=== PATIENT | female | born 1990 | race Caucasian/White ===

== ENCOUNTER 2016-12-27 15:53 | Emergency (ER) | payer OTHER ==
[2016-12-27 16:00] VITALS: TEMP 98.5
--- NOTE | 2016-12-27 16:44 | ED ---
Anxiety HPI - General Chief Complaint: Anxiety Stated Complaint: Anxiety Time Seen by Provider: 12/27/16 16:18 Source: patient, RN notes reviewed Mode of arrival: ambulatory - History of Present Illness Initial Comments: 26-year-old female presents emergency department with a chief complaint of panic attack. Patient states that she is about to be evicted from her apartment today she just started to break down. Patient states that she just overwhelmed by anxiety. Patient states that she felt like she can get good deep breaths. Patient states she started to cry. Patient states she was concerned so she thought that she should be evaluated. Patient states now this time she is feeling better. She states after she cried she is feeling much better and would like to go home.Patient denies any recent fever, chills, shortness of breath, chest pain, back pain, abdominal pain, nausea vomiting, numbness or tingling, dysuria or hematuria, constipation or diarrhea, headaches or visual changes, or any other current symptoms. - Related Data Home Medications: Home Medications Medication Instructions Recorded Confirmed No Known Home Medications [No 12/27/16 12/27/16 Known Home Medications] Allergies/Adverse Reactions: Allergies Allergy/AdvReac Type Severity Reaction Status Date / Time No Known Allergies Allergy Verified 12/27/16 16:35 Review of Systems ROS Statement: Those systems with pertinent positive or pertinent negative responses have been documented in the HPI. ROS Other: All systems not noted in ROS Statement are negative. Past Medical History Past Medical History: No Reported History Additional Past Medical History / Comment(s): OB history: First was a for distress. This is her second and she has had care with me since 16 weeks. A+, abs neg, Rub Imm, RPR NR, Hep B neg, toxo neg. History of Any Multi-Drug Resistant Organisms: None Reported Past Surgical History: Section Past Anesthesia/Blood Transfusion Reactions: No Reported Reaction Past Psychological History: No Psychological Hx Reported Smoking Status: Current every day smoker Past Alcohol Use History: Daily Past Drug Use History: None Reported - Past Family History Mother Family Medical History: COPD Additional Family Medical History / Comment(s): General Exam Limitations: no limitations General appearance: alert, in no apparent distress Head exam: Present: atraumatic, normocephalic, normal inspection ENT exam: Present: normal exam, mucous membranes moist Neck exam: Present: normal inspection. Absent: tenderness, meningismus, lymphadenopathy Respiratory exam: Present: normal lung sounds bilaterally. Absent: respiratory distress, wheezes, rales, rhonchi, stridor Cardiovascular Exam: Present: regular rate, normal rhythm, normal heart sounds. Absent: systolic murmur, diastolic murmur, rubs, gallop, clicks Neurological exam: Present: alert, oriented X3 Psychiatric exam: Present: normal affect, normal mood Skin exam: Present: warm, dry, intact, normal color. Absent: rash Course Vital Signs 12/27/16 15:56 Temperature 98.5 F Pulse Rate 124 H Respiratory 20 Rate Blood Pressure 158/87 O2 Sat by Pulse 99 Oximetry Medical Decision Making - Medical Decision Making 26-year-old female presents with what appears to be a panic attack. This time symptoms have completely resolved and she is requesting discharge. At this time we did discuss follow-up and to give her a sheet for referrals for counselors. We did discuss return parameters all questions. Patient stated that she understood and she is planned. She will be discharged. Disposition Clinical Impression: Acute anxiety Disposition: HOME SELF-CARE Condition: Stable Instructions: Generalized Anxiety Disorder (ED) Additional Instructions: Please use medication as discussed. Please follow up with family doctor if symptoms have not improved over the next two days. Please return to the emergency room if your symptoms increase or worsen or for any other concerns. Referrals: Renata Johnson MD [STAFF PHYSICIAN] - 1-2 days Time of Disposition: 16:44
[2016-12-27 17:00] VITALS: BP 144/96; PULSE 85; RESP 16
== END 2016-12-27 17:00 | disposition home or self-care (01) ==
LOC: EC 15:53
DX: F41.9 Anxiety disorder, unspecified (principal); F17.200 Nicotine dependence, unspecified, uncomplicated
CPT/HCPCS: 99283

== ENCOUNTER 2018-12-26 16:09 | Emergency (ER) | payer OTHER ==
[2018-12-26 17:32] VITALS: BP 124/88; PULSE 79; RESP 18; TEMP 98.5
--- NOTE | 2018-12-26 18:29 | ED ---
ENT HPI - General Chief complaint: ENT Stated complaint: Ear pain Time Seen by Provider: 12/26/18 17:52 Source: patient Mode of arrival: ambulatory Limitations: no limitations - History of Present Illness Initial comments: Patient is a 28-year-old female presents emergency Department with bilateral otalgia. Patient reports approximately 2 weeks ago she had an upper respiratory infection accompanied with a sinus infection which has since resolved but the bilateral ear discomfort still present. Patient reports the pain is minimal but she does have decreased hearing bilaterally. Patient denies taking medications to alleviate the symptoms. Patient does report bilateral ear effusion of yellow fluid. Patient denies bilateral auricular pain or erythema. Patient denies fever, nausea, vomiting. Patient denies rhinorrhea, sore throat or cough. Patient does report a history of seasonal ALLERGIES which she does not take anything to alleviate them. - Related Data Previous Rx's Medication Instructions Recorded Amoxicillin 500 mg PO Q8H #30 capsule 12/26/18 Allergies Allergy/AdvReac Type Severity Reaction Status Date / Time No Known Allergies Allergy Verified 12/26/18 17:32 Review of Systems ROS Statement: Those systems with pertinent positive or pertinent negative responses have been documented in the HPI. ROS Other: All systems not noted in ROS Statement are negative. Past Medical History Past Medical History: No Reported History Additional Past Medical History / Comment(s): OB history: First was a for distress. This is her second and she has had care with me since 16 weeks. A+, abs neg, Rub Imm, RPR NR, Hep B neg, toxo neg. History of Any Multi-Drug Resistant Organisms: None Reported Past Surgical History: Section Past Anesthesia/Blood Transfusion Reactions: No Reported Reaction Past Psychological History: No Psychological Hx Reported Smoking Status: Current every day smoker Past Alcohol Use History: Occasional Past Drug Use History: None Reported - Past Family History Mother Family Medical History: COPD Additional Family Medical History / Comment(s): General Exam Limitations: no limitations General appearance: alert, in no apparent distress Head exam: Present: atraumatic, normocephalic, normal inspection Eye exam: Present: normal appearance, PERRL, EOMI Pupils: Present: normal accommodation ENT exam: Present: normal exam, normal oropharynx, mucous membranes moist, normal external ear exam, other (Mild cerumen impaction bilaterally.). Absent: TM's normal bilaterally (Bilateral bulging tympanic membranes. Erythematous right tympanic membrane.) Neck exam: Present: normal inspection, full ROM. Absent: tenderness, lymphadenopathy Respiratory exam: Present: normal lung sounds bilaterally Cardiovascular Exam: Present: regular rate, normal rhythm, normal heart sounds Extremities exam: Present: normal inspection, full ROM Back exam: Present: normal inspection, full ROM Neurological exam: Present: alert, oriented X3 Psychiatric exam: Present: normal affect, normal mood Skin exam: Present: warm, intact, normal color Course Vital Signs 12/26/18 17:30 Temperature 98.5 F Pulse Rate 79 Respiratory 18 Rate Blood Pressure 124/88 O2 Sat by Pulse 99 Oximetry Medical Decision Making - Medical Decision Making Patient is a 28-year-old who presents emergency Department with bilateral otalgia. Based on history and physical examination a suspect the patient to be having a right-sided ear infection. Concurrently a suspect the patient to have decreased hearing due to seasonal ALLERGIES. Patient will be placed on 10 the course of amoxicillin. Patient will also be placed on Zyrtec. Patient advised to follow up with ENT. Patient advised to return to emergency department if symptoms worsen. Case discussed with physician. Disposition Clinical Impression: Ear discomfort Disposition: HOME SELF-CARE Condition: Stable Instructions (If sedation given, give patient instructions): Earache (ED) Additional Instructions: Please take prescribed medication as directed. Please follow up with primary care. Please return to emergency department if symptoms worsen. Please obtain Zyrtec [id number]. Prescriptions: Amoxicillin 500 mg PO Q8H #30 capsule Is patient prescribed a controlled substance at d/c from ED?: No Referrals: None,Stated [Primary Care Provider] - 1-2 days Time of Disposition: 18:29
== END 2018-12-26 18:36 | disposition home or self-care (01) ==
LOC: EC 16:09
DX: H92.03 Otalgia, bilateral (principal); F17.200 Nicotine dependence, unspecified, uncomplicated
CPT/HCPCS: 99282

== ENCOUNTER 2020-03-14 06:21 | Inpatient (IN) | payer OTHER ==
[2020-03-14] MEDS ORDERED: CITRIC ACID-SODIUM CITRATE 15 ML CUP PO ONE (06:40)
[2020-03-14 07:01] LABS: Basophils % (A) 0 %; Eosinophils # (A) 0.2 k/uL (0-0.7); Eosinophils % (A) 2 %; HGB 12.7 gm/dL (11.4-16.0); Lymphocytes # (A) 2.4 k/uL (1.0-4.8); Lymphocytes % (A) 18 %; MCH 28.1 pg (25.0-35.0); MCHC 33.4 g/dL (31.0-37.0); MCV 84.1 fL (80.0-100.0); Monocytes # (A) 0.8 k/uL (0-1.0); Monocytes % (A) 6 %; Neutrophils # (A) 9.5 k/uL (1.3-7.7); Neutrophils % (A) 72 %; Platelet Count 286 k/uL (150-450); RBC 4.52 m/uL (3.80-5.40); RDW 13.4 % (11.5-15.5); WBC 13.1 k/uL (3.8-10.6)
[2020-03-14] MEDS: LACTATED RINGERS 1,000 ML IV SCH ×4 (07:02→22:00)
[2020-03-14] MEDS ORDERED: MORPHINE SULFATE (PF) 0.3 MG/0.3 ML SYR ONE (07:58)
[2020-03-14] MEDS ORDERED: OXYTOCIN 10 UNIT/ML 1 ML VIAL ONE (07:58)
[2020-03-14] MEDS ORDERED: ePHEDrine SULFATE/0.9% NACL/PF 50 MG/5 ML SYRINGE IV ONE (07:58)
[2020-03-14] MEDS ORDERED: ONDANSETRON 4 MG/2 ML VIAL ONE (07:58)
[2020-03-14] MEDS ORDERED: KETOROLAC 15 MG/ML 1 ML VIAL ONE (07:58)
[2020-03-14] MEDS ORDERED: NALBUPHINE 10 MG/ML (1 ML AMP) ONE (07:58)
[2020-03-14] MEDS ORDERED: KETOROLAC 15 MG/ML 1 ML VIAL IVP PRN (08:34)
[2020-03-14] MEDS ORDERED: MEASLES-MUMPS-RUBELLA VACC/PF 12,500 UNIT/0.5 ML VIAL SQ ONE (08:34)
[2020-03-14] MEDS ORDERED: ONDANSETRON 4 MG/2 ML VIAL IVP PRN ×2 (08:34→09:02)
[2020-03-14] MEDS ORDERED: HYDROcodone/APAP 7.5-325MG 1 EACH TAB PO PRN (08:34)
[2020-03-14] MEDS ORDERED: diphenhydrAMINE 50 MG/ML 1 ML VIAL IVP PRN ×2 (08:34)
[2020-03-14] MEDS ORDERED: diphenhydrAMINE 25 MG CAP PO PRN (08:34)
[2020-03-14] MEDS ORDERED: NALOXONE 0.4 MG/ML 1 ML VIAL IV PRN ×2 (08:34→09:02)
[2020-03-14] MEDS ORDERED: ZOLPIDEM 5 MG TAB PO PRN (08:34)
[2020-03-14] MEDS ORDERED: METOCLOPRAMIDE 5 MG/ML 2 ML VIAL IVP PRN (08:34)
[2020-03-14] MEDS ORDERED: diphenhydrAMINE 50 MG CAP PO PRN (08:34)
[2020-03-14] MEDS ORDERED: ACETAMINOPHEN TAB 325 MG TAB PO PRN (08:34)
--- NOTE | 2020-03-14 08:38 | P.OP ---
Date of Procedure: 03/14/20 Preoperative Diagnosis: Intrauterine Brixey term: Prior sections Postoperative Diagnosis: Same Procedure(s) Performed: Repeat low transverse section Anesthesia: spinal Surgeon: Anjel Mejia Ip Architect #1: Carroll Abraham Estimated Blood Loss (ml): 300 IV fluids (ml): 1,000 Urine output (ml): 300 Pathology: none sent Condition: stable Disposition: floor Operative Findings: Viable female who cord 1 easily reduced Description of Procedure: Patient was taken to the operating suite where a drip spinal anesthetic was found be adequate. She was prepped and draped in the normal sterile fashion and placed in the dorsal supine position with leftward tilt. Initially a Pfannenstiel skin incision was made and this incision was then carried through to underlying layer of the fascia with the second knife. Fascia was then nicked in the midline and this opening was extended laterally with Louis scissors. Superior and inferior aspect of this incision were then grasped tented up and bluntly and sharply dissected off the rectus muscles. Rectus muscles were then divided the midline and blunt dissection through the peritoneum was done. This opening was then extended superiorly and inferiorly with good visualization of both bowel bladder. Bladder blade was then placed and the bladder flap identified. It was entered with Metzenbaum scissors and carried across face uterus and then bluntly dissected out of the operative field. Knife was then used to incise uterus and this opening was then extended bluntly following full opening with hemostat. Once this is completed head was atraumatically delivered from left occiput transverse position nuchal cord 1 was noted and easily reduced. Anterior posterior shoulders were then delivered followed by the hollie hunter the baby. Umbilical cord was then clamped cut usual fashion an nursery personnel was present to assume care. Placenta was then delivered intact and Pitocin was added to the IV. Uterus was then exteriorized cleared of clots and debris and closed in 2 layers with 0 Vicryl suture. Once full closure was done and hemostasis was obtained blood and debris was suctioned the posterior cul-de-sac and uterus was reinserted into the abdomen. Peritoneal layer was then closed with 0 Vicryl suture. Fascial layers close with 0 Vicryl suture. One layer of 3-0 Vicryl was placed in deep subcuticular tissues to reapproximate skin and close the space. Skin was then closed with 4-0 Vicryl subcuticular. Sponge, lap, needle counts were all correct 2. Patient was then taken to the recovery room in stable and satisfactory condition.
[2020-03-14] MEDS ORDERED: HYDROmorphone 0.5 MG/0.5 ML SYRINGE IVP PRN (09:02)
--- NOTE | 2020-03-14 12:54 | P.HPOB ---
History of Present Illness H&P Date: 03/14/20 Chief Complaint: Intrauterine term: Prior sections Phyllis is a 29-year-old at 39 weeks gestation arise for repeat section. Risks course has been, K by late care and I only began seeing her at 33 weeks during the course of my visit as she does not have any problems issues or complaints. She is scheduled for repeat section today. Risks/benefits/alternatives reviewed with patient in detail and all questions were answered for her prior to proceeding to the operative room. Category 1 tracings noted prior to proceeding to the operative. Past Medical History Past Medical History: No Reported History Additional Past Medical History / Comment(s): OB history: First was a for distress. This is her second and she has had care with me since 16 weeks. A+, abs neg, Rub Imm, RPR NR, Hep B neg, toxo neg. History of Any Multi-Drug Resistant Organisms: None Reported Past Surgical History: Section Past Anesthesia/Blood Transfusion Reactions: No Reported Reaction Past Psychological History: No Psychological Hx Reported Smoking Status: Current every day smoker Past Alcohol Use History: Occasional Past Drug Use History: None Reported - Past Family History Mother Family Medical History: COPD Additional Family Medical History / Comment(s): Medications and Allergies Home Medications Medication Instructions Recorded Confirmed Type No Known Home Medications 03/14/20 03/14/20 History Allergies Allergy/AdvReac Type Severity Reaction Status Date / Time No Known Allergies Allergy Verified 12/26/18 17:32 Exam Osteopathic Statement: *. No significant issues noted on an osteopathic structural exam other than those noted in the History and Physical/Consult. Vital Signs Temp Pulse Resp BP Pulse Ox 03/14/20 10:41 81 16 111/65 98 03/14/20 10:11 80 16 116/68 97 03/14/20 10:02 16 98 03/14/20 09:41 86 16 111/83 98 03/14/20 09:26 80 16 107/64 100 03/14/20 09:11 90 16 160/63 100 03/14/20 09:02 16 100 03/14/20 08:56 83 16 117/58 100 03/14/20 08:41 96.8 F L 89 16 132/60 03/14/20 06:42 97.0 F L 102 H 18 115/80 96 Intake and Output 03/13/20 03/14/20 03/14/20 22:59 06:59 14:59 Intake Total 100 Output Total 587 Balance -487 Intake: Oral 100 Output: Estimated Blood Loss 587 Other: Voiding Method Indwelling Catheter Weight 84.368 kg - OBG Physical Exam Breast: both: normal (no masses) Abdomen: bowel sounds normal, no diffuse tenderness, no bruit present, no guarding noted, no hepatomegaly, no splenomegaly, no mass Vulva: both: normal Vagina: normal moisture, no discharge Cervix: no lesion, no discharge Uterus: normal size, normal contour Adnexa: both: normal Anus/Rectum: normal perianal skin, no rectal mass, no hemorrhoids, heme negative Results Result Diagrams: 03/14/20 06:40 Abnormal Lab Results - Last 24 Hours (Table) 03/14/20 Range/Units 06:40 WBC 13.1 H (3.8-10.6) k/uL Neutrophils # 9.5 H (1.3-7.7) k/uL
[2020-03-14] MEDS: SENNOSIDES-DOCUSATE SODIUM 1 EACH TAB PO SCH (20:33)
[2020-03-15] MEDS: LACTATED RINGERS 1,000 ML IV SCH ×3 (00:43→09:11)
--- NOTE | 2020-03-15 07:18 | P.PN ---
Progress Note - Text Progress Note Date: 03/15/20 Patient seen and examined POD # 1 s/p . Patient received spinal anesthesia with duramorph for post operative pain management. Patient with acceptable pain this morning. Patient able to ambulate and use the restroom without difficulty. Patient denies headache, fever, chills, chest pain, itching, dizziness, SOB, parathesias. Spinal site clean and without erythema. All questions answered.
[2020-03-15 07:24] LABS: Basophils # (A) 0.1 k/uL (0-0.2); Basophils % (A) 1 %; Eosinophils # (A) 0.2 k/uL (0-0.7); Eosinophils % (A) 1 %; HCT 33.4 % (34.0-46.0); HGB 11.3 gm/dL (11.4-16.0); Lymphocytes # (A) 1.5 k/uL (1.0-4.8); Lymphocytes % (A) 14 %; MCH 28.1 pg (25.0-35.0); MCHC 33.9 g/dL (31.0-37.0); Mean Platelet Volume 7.6; Monocytes % (A) 9 %; Neutrophils # (A) 8.5 k/uL (1.3-7.7); Neutrophils % (A) 75 %; Platelet Count 250 k/uL (150-450); RBC 4.03 m/uL (3.80-5.40); RDW 13.2 % (11.5-15.5); WBC 11.4 k/uL (3.8-10.6)
--- NOTE | 2020-03-15 08:28 | P.PNOBGPC ---
Subjective - Subjective Principal diagnosis: Postop day 1 Interval history: Phyllis is doing very well postop day 1. She is involuting, voiding and she is tolerating her diet. She voices no complaints and her vital signs are stable and afebrile. Heart regular, lungs clear, extremities without pain. Abdomen soft incisions clean dry and intact. Assessment post op day 1. Plan continue current care Patient reports: Reports appetite normal, Reports voiding normally, Reports pain well controlled, Reports ambulating normally : doing well Objective - Vital Signs Latest vital signs: Vital Signs Temp Pulse Resp BP Pulse Ox 03/15/20 03:58 98.3 F 71 16 121/82 98 03/15/20 00:00 98.1 F 74 16 127/83 98 03/14/20 20:00 97.9 F 83 16 115/81 95 03/14/20 18:00 16 99 03/14/20 16:00 97.7 F 73 16 110/72 03/14/20 14:02 98 03/14/20 14:00 16 98 03/14/20 12:02 98 03/14/20 12:00 98.6 F 92 18 107/67 97 03/14/20 10:41 81 16 111/65 98 03/14/20 10:11 80 16 116/68 97 03/14/20 10:02 16 98 03/14/20 09:41 86 16 111/83 98 03/14/20 09:26 80 16 107/64 100 03/14/20 09:11 90 16 160/63 100 03/14/20 09:02 16 100 03/14/20 08:56 83 16 117/58 100 03/14/20 08:41 96.8 F L 89 16 132/60 Intake and Output 03/14/20 03/15/20 03/15/20 22:59 06:59 14:59 Output Total 3400 1000 Balance -3400 -1000 Output: Urine 3400 1000 Uretheral (Lozano) 2500 Other: Voiding Method Indwelling Catheter # Voids 2 1 - Labs Labs: Abnormal Lab Results - Last 24 Hours (Table) 03/15/20 Range/Units 07:06 WBC 11.4 H (3.8-10.6) k/uL Hgb 11.3 L (11.4-16.0) gm/dL Hct 33.4 L (34.0-46.0) % Neutrophils # 8.5 H (1.3-7.7) k/uL
[2020-03-15] MEDS: SENNOSIDES-DOCUSATE SODIUM 1 EACH TAB PO SCH ×2 (08:52→20:02)
[2020-03-15] MEDS: IBUPROFEN 600 MG TAB PO PRN ×2 (13:38→20:01)
--- NOTE | 2020-03-16 07:27 | P.DS ---
Providers Date of admission: 03/14/20 06:21 Expected date of discharge: 03/16/20 Attending physician: Anjel Mejia Primary care physician: Stated None Hospital Course: Phyllis is doing very well postop day 2. She is ambulating, voiding and tolerating her diet. She voices no complaint. Vital signs are stable and afebrile. Heart regular, lungs clear, extremities without pain. Abdomen is soft uterus is firm and her incision is otherwise clean dry and intact. Prescriptions for [place] and Motrin are provided and discharge instructions were thoroughly reviewed and all questions are answered for her and she is stable for discharge this time. Assessment postop day 2. Plan discharged home follow up with me in 1 week Patient Condition at Discharge: Good Plan - Discharge Summary New Discharge Prescriptions: New Ibuprofen [Motrin] 600 mg PO Q6HR PRN #30 tab PRN Reason: Pain HYDROcodone/APAP 5-325MG [[place] 5-325] 1 tab PO Q4HR PRN #30 tab PRN Reason: Pain Discharge Medication List HYDROcodone/APAP 5-325MG [[place] 5-325] 1 tab PO Q4HR PRN #30 tab 03/16/20 [Rx] Ibuprofen [Motrin] 600 mg PO Q6HR PRN #30 tab 03/16/20 [Rx] Follow up Appointment(s)/Referral(s): Anjel Mejia DO [Doctor of Osteopathic Medicine] - 1 Week Activity/Diet/Wound Care/Special Instructions: No heavy lifting, limit stairs and driving, and pelvic rest. If any high temperatures, heavy bleeding, or severe pain call my office
[2020-03-16] MEDS: IBUPROFEN 600 MG TAB PO PRN (08:57)
[2020-03-16] MEDS: SENNOSIDES-DOCUSATE SODIUM 1 EACH TAB PO SCH (08:58)
[2020-03-16 09:11] VITALS: BP 110/71; PULSE 75; RESP 16; TEMP 98.1
== END 2020-03-16 11:00 | disposition home or self-care (01) | DRG 788 ==
LOC: 4FBP 06:21
PROVIDERS: ADMIT Obstetrics & Gynecology; ATTEND Obstetrics & Gynecology
PROC: 10D00Z1 Extraction of Products of Conception, Low, Open Approach (ICD-10-PCS; principal; 2020-03-14 08:00)
DX: O34.211 Maternal care for low transverse scar from previous cesarean delivery (principal); O99.334 Smoking (tobacco) complicating childbirth; F17.200 Nicotine dependence, unspecified, uncomplicated; O69.81X0 Labor and delivery complicated by cord around neck, without compression, not applicable or unspecified; Z37.0 Single live birth; Z3A.39 39 weeks gestation of pregnancy; Z82.5 Family history of asthma and other chronic lower respiratory diseases
CPT/HCPCS: 85025; 86850; 86900; 86901

== ENCOUNTER 2021-03-23 18:30 | Emergency (ER) | payer OTHER ==
[2021-03-23 18:48] VITALS: BP 126/82; PULSE 90; RESP 20; TEMP 98.1
--- NOTE | 2021-03-23 19:57 | ED ---
Recheck HPI - General Chief Complaint: Recheck/Abnormal Lab/Rx Stated Complaint: Sneezing Time Seen by Provider: 03/23/21 19:37 Source: patient Mode of arrival: ambulatory Limitations: no limitations - History of Present Illness Initial Comments: 30-year-old female presents to emergency Department with chief complaint of sneezing and Covid testing. Patient reported symptoms begin to occur since yesterday and states that her family forced her to come to emergency department for for evaluation. Patient is requesting Queenie testing. Patient has any chest pain shortness of breath fevers chills nausea vomiting diarrhea. She is not a smoker. - Related Data Previous Rx's Medication Instructions Recorded HYDROcodone/APAP 5-325MG [[place] 1 tab PO Q4HR PRN #30 tab 03/16/20 5-325] Ibuprofen [Motrin] 600 mg PO Q6HR PRN #30 tab 03/16/20 Allergies Allergy/AdvReac Type Severity Reaction Status Date / Time No Known Allergies Allergy Verified 03/23/21 18:48 Review of Systems ROS Statement: Those systems with pertinent positive or pertinent negative responses have been documented in the HPI. ROS Other: All systems not noted in ROS Statement are negative. Past Medical History Past Medical History: No Reported History Additional Past Medical History / Comment(s): OB history: First was a for distress. This is her second and she has had care with co since 16 weeks. A+, abs neg, Rub Imm, RPR NR, Hep B neg, toxo neg. History of Any Multi-Drug Resistant Organisms: None Reported Past Surgical History: Section Past Anesthesia/Blood Transfusion Reactions: No Reported Reaction Past Psychological History: Anxiety Smoking Status: Current every day smoker Past Alcohol Use History: Occasional Past Drug Use History: None Reported - Past Family History Mother Family Medical History: COPD Additional Family Medical History / Comment(s): General Exam Limitations: no limitations General appearance: alert, in no apparent distress Head exam: Present: atraumatic, normocephalic, normal inspection Eye exam: Present: normal appearance Pupils: Present: normal accommodation ENT exam: Present: normal exam, normal oropharynx, mucous membranes moist Neck exam: Present: normal inspection, full ROM. Absent: tenderness, lymphadenopathy Respiratory exam: Present: normal lung sounds bilaterally. Absent: respiratory distress Cardiovascular Exam: Present: regular rate, normal rhythm, normal heart sounds. Absent: systolic murmur Extremities exam: Present: normal inspection, full ROM, normal capillary refill. Absent: tenderness, pedal edema Back exam: Present: normal inspection, full ROM. Absent: tenderness Neurological exam: Present: alert, oriented X3 Psychiatric exam: Present: normal affect, normal mood Skin exam: Present: warm, dry, intact, normal color Course Vital Signs 03/23/21 18:46 Temperature 98.1 F Pulse Rate 90 Respiratory 20 Rate Blood Pressure 126/82 O2 Sat by Pulse 99 Oximetry Medical Decision Making - Medical Decision Making 30-year-old female presents to emergency department with a chief complaint of sneezing and covid-19act testing. On physical examination, patient does not appear to be in respiratory distress. Vital signs are within normal limits. She is negative for Covid. Return parameters were discussed patient is an ascending agreeable. Case discussed with physician. - Lab Data Lab Results 03/23/21 Range/Units 18:49 Coronavirus (PCR) Not Detected (Not Detectd) Disposition Clinical Impression: Lab test negative for COVID-19 virus Disposition: HOME SELF-CARE Condition: Stable Instructions (If sedation given, give patient instructions): Coronavirus Disease 2019 (COVID-19) Additional Instructions: Please return to the Emergency Department if symptoms worsen or any other concerns. Is patient prescribed a controlled substance at d/c from ED?: No Referrals: None,Stated [Primary Care Provider] - 1-2 days Time of Disposition: 19:57
== END 2021-03-23 20:05 | disposition home or self-care (01) ==
LOC: EC 18:30
DX: R06.7 Sneezing (principal); F17.200 Nicotine dependence, unspecified, uncomplicated; Z20.822 Contact with and (suspected) exposure to COVID-19
CPT/HCPCS: 87635; 99283

== ENCOUNTER 2021-08-09 16:11 | Emergency (ER) | payer OTHER ==
[2021-08-09 17:13] VITALS: BP 130/80; PULSE 89; RESP 16; TEMP 98.7
[2021-08-09] MEDS ORDERED: IBUPROFEN 600 MG TAB PO STA (18:55)
[2021-08-09] MEDS ORDERED: LIDOCAINE 1% INJ 10MG/ML (20 ML MDV) SQ ONE (18:55)
--- NOTE | 2021-08-09 20:02 | ED ---
General Adult HPI - General Chief complaint: Skin/Abscess/Foreign Body Stated complaint: sore on L leg Time Seen by Provider: 08/09/21 18:40 Source: patient, RN notes reviewed Mode of arrival: ambulatory Limitations: no limitations - History of Present Illness Initial comments: 31-year-old female presents to the emergency department for evaluation of re dness and pain to the anterior aspect of the left lower extremity. Patient states she had what appeared to be a pimple-like sore on her lower leg, onset 2 days ago. States she has had no drainage from the wound since attempting to "pop it" yesterday. Now has surrounding redness and discomfort. Patient complains of pain. Denies fever, chills, headache, shortness of breath, nausea, or pain with ambulation. - Related Data Previous Rx's Medication Instructions Recorded Cephalexin [Keflex] 500 mg PO Q8HR 7 Days #21 cap 08/09/21 Allergies Allergy/AdvReac Type Severity Reaction Status Date / Time No Known Allergies Allergy Verified 08/09/21 19:30 Review of Systems ROS Statement: Those systems with pertinent positive or pertinent negative responses have been documented in the HPI. ROS Other: All systems not noted in ROS Statement are negative. Past Medical History Past Medical History: No Reported History Additional Past Medical History / Comment(s): OB history: First was a for distress. This is her second and she has had care with me since 16 weeks. A+, abs neg, Rub Imm, RPR NR, Hep B neg, toxo neg. History of Any Multi-Drug Resistant Organisms: None Reported Past Surgical History: Section Past Anesthesia/Blood Transfusion Reactions: No Reported Reaction Past Psychological History: Anxiety Smoking Status: Current every day smoker Past Alcohol Use History: Occasional Past Drug Use History: None Reported - Past Family History Mother Family Medical History: COPD Additional Family Medical History / Comment(s): General Exam Limitations: no limitations (Vital well-nourished female in no acute distress. Initial temperature 98.7, pulse 89, respirations 16, blood pressure 130/80, pulse ox 98% on room air.) General appearance: alert, in no apparent distress Respiratory exam: Present: normal lung sounds bilaterally. Absent: respiratory distress, wheezes, rales, rhonchi, stridor Cardiovascular Exam: Present: regular rate, normal rhythm, normal heart sounds. Absent: systolic murmur, diastolic murmur, rubs, gallop, clicks Right Lower Leg exam: Present: normal inspection, full ROM. Absent: tenderness, swelling, erythema, Homans' sign Neurovascular tendon exam: Present: no vascular compromise Left Knee exam: Present: normal inspection, full ROM. Absent: tenderness, swelling Lower Leg exam: Present: full ROM, tenderness (Tenderness upon palpation of the indurated area on the anterior aspect of the left lower leg; abscess is approximately 1 cm x 2 cm with a pinpoint scab in the center. No fluctuant area.), erythema (Erythematous tissue surrounding indurated area; no drainage ). Absent: swelling Ankle exam: Present: normal inspection, full ROM. Absent: tenderness Neurovascular tendon exam: Present: no vascular compromise. Absent: pulse deficit, abnormal cap refill, motor deficit, sensory deficit Neurological exam: Present: alert, oriented X3, CN II-XII intact Psychiatric exam: Present: normal affect, normal mood Course Vital Signs 08/09/21 17:10 Temperature 98.7 F Pulse Rate 89 Respiratory 16 Rate Blood Pressure 130/80 O2 Sat by Pulse 98 Oximetry Medical Decision Making - Medical Decision Making 31-year-old female with no significant past medical history presents to the e mergency department for evaluation of abscess with surrounding erythema to the anterior aspect of the left lower extremity. Upon exam, patient is well- appearing and in no acute distress. She is afebrile and not tachycardic. Abscess is 1 cm x 2 cm with a pinpoint scab in the center; it is indurated with no area of fluctuance for incision and drainage. Surrounding the abscess is diffuse erythema approximately 5 cm x 8 cm; it is not not warm to touch. Patient does not have any lower extremity edema. No history of recent MRSA infection. Patient will be started on Keflex, instructed to apply warm compresses and keep the leg elevated. She was given Motrin for discomfort with improvement. Instructed to follow up with her PCP next week. Return parameters were discussed. Patient verbalizes understanding and agrees with this plan. This patient's care was discussed with my attending Dr. Turner. Disposition Clinical Impression: Cellulitis and abscess of left lower extremity Disposition: HOME SELF-CARE Condition: Stable Instructions (If sedation given, give patient instructions): Cellulitis (ED), Abscess (ED) Additional Instructions: Apply warm compresses to affected area 3-4 times daily. Keep area clean and dry. Alternate Tylenol and Motrin as needed for pain. Take antibiotic as directed. Elevate affected extremity. Follow-up with your PCP for a recheck next Friday. Return to the emergency department with any new, worsening, or concerning symptoms. Prescriptions: Cephalexin [Keflex] 500 mg PO Q8HR 7 Days #21 cap Is patient prescribed a controlled substance at d/c from ED?: No Referrals: None,Stated [Primary Care Provider] - 1-2 days Time of Disposition: 20:15
[2021-08-09] MEDS ORDERED: CEPHALEXIN 500 MG CAP PO STA (20:12)
== END 2021-08-09 20:30 | disposition home or self-care (01) ==
LOC: EC 16:11
DX: L03.116 Cellulitis of left lower limb (principal); L02.416 Cutaneous abscess of left lower limb; F41.9 Anxiety disorder, unspecified; F17.200 Nicotine dependence, unspecified, uncomplicated
CPT/HCPCS: 99283; J2001

== ENCOUNTER 2021-08-15 18:17 | Emergency (ER) | payer OTHER ==
[2021-08-15 18:34] VITALS: BP 117/77; PULSE 86; RESP 20; TEMP 97.7
--- NOTE | 2021-08-15 19:26 | ED ---
General Adult HPI - General Chief complaint: Extremity Problem,Nontraumatic Stated complaint: Rt Leg Infection Time Seen by Provider: 08/15/21 18:46 Source: patient Mode of arrival: ambulatory Limitations: no limitations - History of Present Illness Initial comments: Dictation was produced using [employer] dictation software. please excuse any grammatical, word or spelling errors. Chief Complaint: 31-year-old female presents to the emergency department for worsening leg infection symptoms. History of Present Illness: She 31-year-old female she was seen here in emergency department 6 days ago for infection to her fagan. She was put on Keflex sent home. She did know some pimple at that time tried to pop it with no expression of fluid or pus. Denies any constitutional symptoms. She was put on Keflex 3 times a day sent home. The last couple days her symptoms have been getting worse. States that the redness has been spreading. The ROS documented in this emergency department record has been reviewed and confirmed by me. Those systems with pertinent positive or negative responses have been documented in the HPI. All other systems are other negative and/or noncontributory. PHYSICAL EXAM: General Impression: Alert and oriented x3, not in acute distress HEENT: Normocephalic atraumatic, extra-ocular movements intact, pupils equal and reactive to light bilaterally, mucous membranes moist. Cardiovascular: Heart regular rate and rhythm Chest: Able to complete full sentences, no retractions, no tachypnea Musculoskeletal: Pulses present and equal in all extremities, no peripheral edema Motor: no focal deficits noted Neurological: CN II-XII grossly intact, no focal motor or sensory deficits noted Skin: There does appear to be some redness to the left anterior fagan. She has palpatory tenderness around that area without any worsening redness. Psych: Normal affect and mood ED course: 31 yo Female presents emergency department for worsening left lower extremity infection. She is on Keflex 3 times a day. Vital signs upon arrival are within acceptable limits. [id number] bedside ultrasound was used and sh owed small abscess measuring half by half centimeter. Area was anesthetized with lidocaine. Needle aspiration was performed removing approximately half a cc of purulent fluid. Patient tolerated procedure well. Survey of the rest of the leg showed localized cobblestoning consistent with cellulitis. Given the patient worsened with Keflex patient will be given Keflex and Bactrim. Advised follow-up with primary care doctor. - Related Data Home Medications Medication Instructions Recorded Confirmed Cephalexin [Keflex] 500 mg PO TID 08/15/21 08/15/21 Previous Rx's Medication Instructions Recorded Cephalexin [Keflex] 500 mg PO Q6HR 5 Days #20 cap 08/15/21 Sulfamethox-Tmp 800-160Mg [Bactrim 1 tab PO Q12HR 7 Days #14 tab 08/15/21 DS 800-160 mg] Allergies Allergy/AdvReac Type Severity Reaction Status Date / Time No Known Allergies Allergy Verified 08/15/21 19:17 Review of Systems ROS Statement: Those systems with pertinent positive or pertinent negative responses have been documented in the HPI. ROS Other: All systems not noted in ROS Statement are negative. Past Medical History Past Medical History: No Reported History Additional Past Medical History / Comment(s): OB history: First was a for distress. This is her second and she has had care with pr since 16 weeks. A+, abs neg, Rub Imm, RPR NR, Hep B neg, toxo neg. History of Any Multi-Drug Resistant Organisms: None Reported Past Surgical History: Section Past Anesthesia/Blood Transfusion Reactions: No Reported Reaction Past Psychological History: Anxiety Smoking Status: Former smoker Past Alcohol Use History: Occasional Past Drug Use History: None Reported - Past Family History Mother Family Medical History: COPD Additional Family Medical History / Comment(s): General Exam Limitations: no limitations Course Vital Signs 08/15/21 18:32 Temperature 97.7 F Pulse Rate 86 Respiratory 20 Rate Blood Pressure 117/77 O2 Sat by Pulse 98 Oximetry Disposition Clinical Impression: Abscess Disposition: HOME SELF-CARE Condition: Good Instructions (If sedation given, give patient instructions): Abscess Incision and Drainage (ED) Prescriptions: Sulfamethox-Tmp 800-160Mg [Bactrim DS 800-160 mg] 1 tab PO Q12HR 7 Days #14 tab Cephalexin [Keflex] 500 mg PO Q6HR 5 Days #20 cap Is patient prescribed a controlled substance at d/c from ED?: No Referrals: None,Stated [Primary Care Provider] - 1-2 days
== END 2021-08-15 19:44 | disposition home or self-care (01) ==
LOC: EC 18:17
DX: L02.416 Cutaneous abscess of left lower limb (principal); F41.9 Anxiety disorder, unspecified; Z87.891 Personal history of nicotine dependence
CPT/HCPCS: 10060; 99282

== ENCOUNTER 2022-06-20 10:16 | Emergency (ER) | payer OTHER ==
--- NOTE | 2022-06-20 10:55 | ED ---
URI HPI - General Chief Complaint: Upper Respiratory Infection Stated Complaint: URI Time Seen by Provider: 06/20/22 10:36 Source: patient, RN notes reviewed Mode of arrival: ambulatory Limitations: no limitations - History of Present Illness Initial Comments: This is a 32-year-old female who presents to emergency department for congestion, body aches, and a sore throat. Symptoms started 2 days ago. She denies any sick contacts. She has no significant coughing associated with this. Also denies any chest pain or difficulty breathing. Denies any fevers, chills, cough, dyspnea, chest pain, palpitations, abdominal pain, nausea, vomiting, diarrhea, or back pain. MD Complaint: sore throat, nasal congestion Onset/Timin -: days(s) Associated Symptoms: myalgias - Related Data Previous Rx's Medication Instructions Recorded Azithromycin [Zithromax] 250 mg PO DIRECTED 5 Days #6 tab 06/20/22 predniSONE 50 mg PO DAILY 5 Days #5 tablet 06/20/22 Allergies Allergy/AdvReac Type Severity Reaction Status Date / Time No Known Allergies Allergy Verified 06/20/22 11:26 Review of Systems ROS Statement: Those systems with pertinent positive or pertinent negative responses have been documented in the HPI. ROS Other: All systems not noted in ROS Statement are negative. Past Medical History Past Medical History: No Reported History Additional Past Medical History / Comment(s): OB history: First was a for distress. This is her second and she has had care with [facility] since 16 weeks. A+, abs neg, Rub Imm, RPR NR, Hep B neg, toxo neg. History of Any Multi-Drug Resistant Organisms: None Reported Past Surgical History: Section Past Anesthesia/Blood Transfusion Reactions: No Reported Reaction Past Psychological History: Anxiety Smoking Status: Former smoker Past Alcohol Use History: Occasional Past Drug Use History: None Reported - Past Family History Mother Family Medical History: COPD Additional Family Medical History / Comment(s): General Exam Limitations: no limitations General appearance: alert, in no apparent distress Head exam: Present: atraumatic, normocephalic, normal inspection ENT exam: Present: mucous membranes moist, TM's normal bilaterally, other (2+ t onsillar hypertrophy) Respiratory exam: Present: normal lung sounds bilaterally. Absent: respiratory distress, wheezes, rales, rhonchi, stridor Cardiovascular Exam: Present: regular rate, normal rhythm, normal heart sounds. Absent: systolic murmur, diastolic murmur, rubs, gallop, clicks Neurological exam: Present: alert, oriented X3, CN II-XII intact Psychiatric exam: Present: normal affect, normal mood Skin exam: Present: warm, dry, intact, normal color. Absent: rash Course Vital Signs 06/20/22 06/20/22 10:33 12:39 Temperature 99.0 F 98.3 F Pulse Rate 111 H 107 H Respiratory 22 18 Rate Blood Pressure 126/5 121/86 O2 Sat by Pulse 97 97 Oximetry Medical Decision Making - Medical Decision Making This is a 32-year-old female who presents to the emergency department for a sore throat and body aches. Patient was negative for influenza, Covid, and strep throat. Given that she has no significant coughing or difficulty breathing, a chest x-ray was not obtained. Based on her symptoms, this does not appear to have any current effect on the lungs or lower respiratory tract. Differential diagnoses include a viral pharyngitis, mononucleosis, GERD, and allergies. Based on the acute nature of her symptoms with associated body aches, will treat this as an active infection. We will treat her with a Z-Jluis and course of prednisone. These were both prescribed with dosing instructions reviewed. Advised that if this is a viral infection, the Z-Jluis won't adequately treat it, however it does also offer helpful anti-inflammatory properties. Advised drinking warm fluids as well to help with the sore throat and using [id number] anesthetics or lozenges as needed. Return precautions reviewed in depth, the patient is instructed to return to the emergency department with any new, worsening, or concerning symptoms. Patient verbalized understanding. This case was discussed in detail with the attending ED physician. Presentation, findings, and treatment plan discussed in detail as well. - Lab Data Lab Results 06/20/22 06/20/22 06/20/22 Range/Units 11:06 11:06 11:06 Coronavirus (PCR) Not Detected (Not Detectd) Influenza Type A RNA Not Detected (Not Detectd) Influenza Type B (PCR) Not Detected (Not Detectd) Group A Strep (PCR) NOT DETECTED (Not Detectd) Disposition Clinical Impression: Pharyngitis, Viral infection Disposition: HOME SELF-CARE Instructions (If sedation given, give patient instructions): Pharyngitis (ED), Upper Respiratory Infection (ED) Additional Instructions: Return to the emergency department with any new, worsening, or concerning symptoms. Take the prednisone daily for 5 days. Take the antibiotic as prescribed for 5 days. Drink warm fluids to help with the sore throat. Follow up with your primary care provider in 1-2 days. Prescriptions: predniSONE 50 mg PO DAILY 5 Days #5 tablet Azithromycin [Zithromax] 250 mg PO DIRECTED 5 Days #6 tab Is patient prescribed a controlled substance at d/c from ED?: No Referrals: None,Stated [Primary Care Provider] - 1-2 days
[2022-06-20 12:41] VITALS: BP 121/86; PULSE 107; RESP 18; TEMP 98.3
== END 2022-06-20 12:41 | disposition home or self-care (01) ==
LOC: EC 10:16
DX: J02.8 Acute pharyngitis due to other specified organisms (principal); F41.9 Anxiety disorder, unspecified; Z87.891 Personal history of nicotine dependence; Z20.822 Contact with and (suspected) exposure to COVID-19
CPT/HCPCS: 87502; 87635; 87651; 99283

== ENCOUNTER 2022-06-24 16:32 | Emergency (ER) | payer OTHER ==
[2022-06-24 17:26] VITALS: TEMP 97.8
--- NOTE | 2022-06-24 20:39 | XR ---
EXAMINATION TYPE: XR chest 2V DATE OF EXAM: 06/24/2022 8:27 PM COMPARISON: None TECHNIQUE: XR chest 2V Frontal and lateral views of the chest. CLINICAL INDICATION:Female, 32 years old with history of cough; FINDINGS: Lungs/Pleura: There is no evidence of pleural effusion, focal consolidation, or pneumothorax. Pulmonary vascularity: Unremarkable. Heart/mediastinum: Cardiomediastinal silhouette is unremarkable. Musculoskeletal: No acute osseous pathology. IMPRESSION: No acute cardiopulmonary disease/process.
--- NOTE | 2022-06-24 20:52 | ED ---
URI HPI - General Chief Complaint: Upper Respiratory Infection Stated Complaint: Lt ear problem Time Seen by Provider: 06/24/22 20:05 Source: patient Mode of arrival: ambulatory Limitations: no limitations - History of Present Illness Initial Comments: Patient is a 32-year-old female presenting with chief complaint of left ear pain. Patient was seen here on the and diagnosed with pharyngitis, she was given Z-Jluis. Patient finished her Z-Jluis, she is still complaining of congestion, cough, and states that today she is having trouble hearing out of the left ear. No chest pain or difficulty breathing. No abdominal pain, nausea, vomiting. No neck pain or stiffness. No headache, vision or hearing changes, numbness, tingling, weakness, dizziness. - Related Data Previous Rx's Medication Instructions Recorded Azithromycin [Zithromax] 250 mg PO DIRECTED 5 Days #6 tab 06/20/22 predniSONE 50 mg PO DAILY 5 Days #5 tablet 06/20/22 Amoxicillin 875 mg PO Q12HR 7 Days #14 tablet 06/24/22 Allergies Allergy/AdvReac Type Severity Reaction Status Date / Time No Known Allergies Allergy Verified 06/24/22 17:26 Review of Systems ROS Statement: Those systems with pertinent positive or pertinent negative responses have been documented in the HPI. ROS Other: All systems not noted in ROS Statement are negative. Past Medical History Past Medical History: No Reported History Additional Past Medical History / Comment(s): OB history: First was a for distress. This is her second and she has had care with [facility] since 16 weeks. A+, abs neg, Rub Imm, RPR NR, Hep B neg, toxo neg. History of Any Multi-Drug Resistant Organisms: None Reported Past Surgical History: Section Past Anesthesia/Blood Transfusion Reactions: No Reported Reaction Past Psychological History: Anxiety Smoking Status: Former smoker Past Alcohol Use History: Occasional Past Drug Use History: None Reported - Past Family History Mother Family Medical History: COPD Additional Family Medical History / Comment(s): General Exam Limitations: no limitations General appearance: alert, in no apparent distress Head exam: Present: atraumatic, normocephalic, normal inspection Eye exam: Present: normal appearance, PERRL, EOMI. Absent: scleral icterus, conjunctival injection, periorbital swelling Expanded TM/Canal exam: Erythema: Left TM Neck exam: Present: normal inspection, full ROM Respiratory exam: Present: normal lung sounds bilaterally. Absent: respiratory distress, wheezes, rales, rhonchi, stridor Cardiovascular Exam: Present: regular rate, normal rhythm, normal heart sounds. Absent: systolic murmur, diastolic murmur, rubs, gallop, clicks Neurological exam: Present: alert, oriented X3, CN II-XII intact Psychiatric exam: Present: normal affect, normal mood Skin exam: Present: warm, dry, intact, normal color. Absent: rash Course Vital Signs 06/24/22 06/24/22 06/24/22 17:23 20:20 21:15 Temperature 97.8 F 97.8 F Pulse Rate 100 72 Respiratory 18 20 16 Rate Blood Pressure 153/82 127/58 O2 Sat by Pulse 97 98 Oximetry Medical Decision Making - Medical Decision Making Patient is a 32-year-old female presenting with chief complaint of left ear discomfort and difficulty hearing. Also admits to cough and congestion. Patient was recently treated with Z-Jluis for pharyngitis. Differential includes otitis media, viral URI, tympanic membrane rupture, sinusitis. On physical examination left tympanic membrane is erythematous. Patient is negative for influenza, RSV, and Covid. Chest x-ray interpreted by myself shows no acute process, radiologist report is also reviewed. Patient is educated on these findings. Patient is diagnosed with otitis media and treated with amoxicillin. Discharged home with education on supportive treatment. Alternate Motrin and Tylenol as needed. Follow-up with PCP. Report back to ER with any new or worsening symptoms. Discussed return parameters and answered all questions. Patient conveyed verbal understanding and agreed to the plan. I discussed this case in detail with my attending Dr. Turner - Lab Data Lab Results 06/24/22 Range/Units 17:26 Influenza Type A (PCR) Not Detected (Not Detectd) Influenza Type B (PCR) Not Detected (Not Detectd) RSV (PCR) Not Detected (Not Detectd) SARS-CoV-2 (PCR) Not Detected (Not Detectd) Disposition Clinical Impression: Otitis media Disposition: HOME SELF-CARE Condition: Good Instructions (If sedation given, give patient instructions): Ear Infection (ED), Upper Respiratory Infection (ED) Additional Instructions: Follow-up with PCP. Report back to ER with any new or worsening symptoms. Take medication as prescribed. Prescriptions: Amoxicillin 875 mg PO Q12HR 7 Days #14 tablet Is patient prescribed a controlled substance at d/c from ED?: No Referrals: None,Stated [Primary Care Provider] - 1-2 days Time of Disposition: 20:52
[2022-06-24 21:15] VITALS: BP 127/58; PULSE 72; RESP 16
== END 2022-06-24 21:15 | disposition home or self-care (01) ==
LOC: EC 16:32
DX: H66.92 Otitis media, unspecified, left ear (principal); F41.9 Anxiety disorder, unspecified; Z87.891 Personal history of nicotine dependence; Z20.822 Contact with and (suspected) exposure to COVID-19
CPT/HCPCS: 71046; 87636; 99283

== ENCOUNTER 2022-09-28 15:42 | Emergency (ER) | payer OTHER ==
[2022-09-28 15:53] VITALS: TEMP 97.3
--- NOTE | 2022-09-28 15:58 | ED ---
General Adult HPI - General Chief complaint: Extremity Injury, Lower Stated complaint: toe injury, rt foot Time Seen by Provider: 09/28/22 15:50 Source: patient, RN notes reviewed, old records reviewed Mode of arrival: ambulatory Limitations: no limitations - History of Present Illness Initial comments: Patient is a 32-year-old female presents emergency Department complaining of right fifth digit pain. Patient was playing video games yesterday when she accidentally pulled on the cord which caused the PlayStation to fall off the shelf. She reached for it and jammed her right fifth toe on the shelf. This happened last night. States it is now bruised and has pain along the distal aspect of the right fifth toe. Believes it is broken. Presents for further evaluation this time. No other injuries. No other sensory deficits. No other complaints. Presents for x-rays and evaluation. - Related Data Previous Rx's Medication Instructions Recorded Azithromycin [Zithromax] 250 mg PO DIRECTED 5 Days #6 tab 06/20/22 predniSONE 50 mg PO DAILY 5 Days #5 tablet 06/20/22 Amoxicillin 875 mg PO Q12HR 7 Days #14 tablet 06/24/22 Allergies Allergy/AdvReac Type Severity Reaction Status Date / Time No Known Allergies Allergy Verified 06/24/22 17:26 Review of Systems ROS Statement: Those systems with pertinent positive or pertinent negative responses have been documented in the HPI. Review of Systems: CONST: Denies fever EYES: Denies blurry vision ENT: Denies nasal congestion C/V: Denies Chest pain RESP: Denies shortness of breath GI: Denies abdominal pain : Denies dysuria SKIN: Denies rash. MSK: Endorses toe pain NEURO: Denies headache ROS Other: All systems not noted in ROS Statement are negative. Past Medical History Past Medical History: No Reported History Additional Past Medical History / Comment(s): OB history: First was a for distress. This is her second and she has had care with me since 16 weeks. A+, abs neg, Rub Imm, RPR NR, Hep B neg, toxo neg. History of Any Multi-Drug Resistant Organisms: None Reported Past Surgical History: Section Past Anesthesia/Blood Transfusion Reactions: No Reported Reaction Past Psychological History: Anxiety Smoking Status: Former smoker Past Alcohol Use History: Occasional Past Drug Use History: None Reported - Past Family History Mother Family Medical History: COPD Additional Family Medical History / Comment(s): General Exam - General Exam Comments Initial Comments: General: Appears in no acute distress. HEAD: Normal with no signs of head trauma. EYES: EOMI. ENT: Hearing grossly intact. RESPIRATORY: No respiratory distress. C/V: Regular rate and rhythm. ABD: Abdomen is nondistended. EXT: No obvious deformity. Tenderness to palpation along the right fifth digit. Does not localize but appears to be distal to the MTP joint. Concern for fracture. Neurovascular intact. Good Cap refill. SKIN: Bruising over the proximal aspect of the right fifth digit. NEURO: Alert and oriented. Limitations: no limitations Course Vital Signs 09/28/22 15:50 Temperature 97.3 F L Pulse Rate 110 H Respiratory 20 Rate Blood Pressure 149/100 O2 Sat by Pulse 98 Oximetry Medical Decision Making - Medical Decision Making Was pt. sent in by a medical professional or institution (, PA, TOMOGRAPHIC TECH, urgent care, hospital, or intermediate...) When possible be specific @ -No Did you speak to anyone other than the patient for history (EMS, parent, family, police, friend...)? What history was obtained from this source @ -No Did you review nursing and triage notes (agree or disagree)? Why? @ -I reviewed and agree with nursing and triage notes Were old charts reviewed (outside hosp., previous admission, EMS record, old EKG, old radiological studies, urgent care reports/EKG's, intermediate records)? Report findings @ -No old charts were reviewed Differential Diagnosis (chest pain, altered mental status, abdominal pain women, abdominal pain men, vaginal bleeding, weakness, fever, dyspnea, syncope, headache, dizziness, GI bleed, back pain, seizure, CVA, palpatations, mental health, musculoskeletal)? @ -Toe fracture, toe sprain, toe strain, toe dislocation. This list is not all inclusive. EKG interpreted by me (3pts min.). @ -None done X-rays interpreted by me (1pt min.). @ -Toe x-ray reveals no obvious fracture, injury. CT interpreted by me (1pt min.). @ -None done U/S interpreted by me (1pt. min.). @ -None done What testing was considered but not performed or refused? (CT, X-rays, U/S, labs)? Why? @ -None What meds were considered but not given or refused? Why? @ -I did offer the patient analgesia medications which she declines at this time. Did you discuss the management of the patient with other professionals (professionals i.e. , PA, TOMOGRAPHIC TECH, lab, RT, psych nurse, social media developer, assistant foreman, teacher, accounting officer, caser)? Give summary @ -No Was smoking cessation discussed for >3mins.? @ -No Was critical care preformed (if so, how long)? @ -No Were there social determinants of health that impacted care today? How? (Homelessness, low income, unemployed, alcoholism, drug addiction, transportation, low edu. Level, literacy, decrease access to med. care, shelter, rehab)? @ -No Was there de-escalation of care discussed even if they declined (Discuss DNR or withdrawal of care, Hospice)? DNR status @ -No What co-morbidities impacted this encounter? (DM, HTN, Smoking, COPD, CAD, Cancer, CVA, ARF, Chemo, Hep., AIDS, mental health diagnosis, sleep apnea, morbid obesity)? @ -None Was patient admitted / discharged? Hospital course, mention meds given and route, prescriptions, significant lab abnormalities, going to OR and other pertinent info. @ -Based on the patient's presentation and physical exam, concern for right fifth toe injury. We will obtain x-rays. Patient declines analgesia medications at this time. Vital signs within acceptable limits. X-ray returned negative for any acute fracture. I discussed the findings with the patient. Likely toe sprain but recommended follow-up with PCP as well as orthopedics if symptoms do not improve. Recommended PCP for this. She was in agreement this plan. Can obtain follow-up x-rays as sometimes there are occult fractures that the daytime shallot. She was in agreement this plan. We will yelena tape her toes. Discussed rest, icing, analgesics, elevation. She was in agreement this plan. I instructed the patient to follow up with their PCP in the next 1-3 days. I provided contact information for follow up with orthopedic. I explained that the patient should return to the emergency department if they experience any worsening symptoms. Strict return precautions were discussed with the patient. The patient expressed understanding of these instructions. I answered all questions that the patient had. The patient was discharged home in good condition with their prescriptions and follow up information. Undiagnosed new problem with uncertain prognosis? @ -No Drug Therapy requiring intensive monitoring for toxicity (Heparin, Nitro, Insulin, Cardizem)? @ -No Were any procedures done? @ -No Diagnosis/symptom? @ -Right fifth toe sprain Acute, or Chronic, or Acute on Chronic? @ -Acute Uncomplicated (without systemic symptoms) or Complicated (systemic symptoms)? @ -Uncomplicated Side effects of treatment? @ -none Exacerbation, Progression, or Severe Exacerbation] @ -no Poses a threat to life or bodily function? @ -no Disposition Clinical Impression: Sprain of toe, fifth, right Disposition: HOME SELF-CARE Condition: Good Instructions (If sedation given, give patient instructions): Sprain (ED) Is patient prescribed a controlled substance at d/c from ED?: No Referrals: None,Stated [Primary Care Provider] - 1-2 days Vinayak Rahman DO [Doctor of Osteopathic Medicine] - 1-2 days Time of Disposition: 16:55
--- NOTE | 2022-09-28 16:33 | XR ---
Right foot. HISTORY: Right fifth toe pain. COMPARISON: None TECHNIQUE: 2 views the right foot were obtained. There is no fracture, dislocation or focal intraosseous abnormality. There is mild soft tissue swelli ng over the fifth MTP joint. There is no soft tissue calcification or gas. IMPRESSION: Mild soft tissue swelling of the proximal fifth toe with no other significant abnormality seen.
[2022-09-28 17:15] VITALS: BP 121/90; PULSE 115; RESP 18
== END 2022-09-28 17:17 | disposition home or self-care (01) ==
LOC: EC 15:42
DX: S93.504A Unspecified sprain of right lesser toe(s), initial encounter (principal); Z87.891 Personal history of nicotine dependence; W23.1XXA Caught, crushed, jammed, or pinched between stationary objects, initial encounter
CPT/HCPCS: 99283

== ENCOUNTER 2024-05-12 07:10 | Emergency (ER) | payer OTHER ==
--- NOTE | 2024-05-12 09:02 | XR ---
EXAMINATION TYPE: XR chest 2V DATE OF EXAM: 05/12/2024 8:58 AM COMPARISON: 06/24/2022 CLINICAL INDICATION: Female, 33 years old with history of cough, congestion and sore throat TECHNIQUE: XR chest 2V view(s) obtained. FINDINGS: The heart size is normal. The pulmonary vasculature is normal. The lungs are clear. IMPRESSION: 1. No acute pulmonary process. [facility], , 05/12/2024 8:59 AM
[2024-05-12] MEDS: dexAMETHasone 2 MG TAB PO STA (09:10)
--- NOTE | 2024-05-12 10:02 | ED ---
General Adult HPI - General Chief complaint: Upper Respiratory Infection Stated complaint: congestion/sore throat Time Seen by Provider: 05/12/24 08:40 Source: patient, RN notes reviewed, old records reviewed Mode of arrival: ambulatory Limitations: no limitations - History of Present Illness Initial comments: Patient is a 33-year-old female presents emergency department complaining of upper respiratory symptoms. Has been having URI symptoms for 1 day. Patient's child has had similar symptoms. Diagnosed with pneumonia and placed on anti biotics. She presents over concern for current symptoms. Endorses slight sore throat in addition to nasal congestion and productive cough of minimal yellow mucus. Thinks she may have gotten pneumonia. Patient has had symptoms for 1 to 2 days. - Related Data Previous Rx's Medication Instructions Recorded Azithromycin [Zithromax] 250 mg PO DIRECTED 5 Days #6 tab 06/20/22 predniSONE 50 mg PO DAILY 5 Days #5 tablet 06/20/22 Amoxicillin 875 mg PO Q12HR 7 Days #14 tablet 06/24/22 Azithromycin [Zithromax] 250 mg PO DAILY 4 Days #4 tab 05/12/24 Allergies Allergy/AdvReac Type Severity Reaction Status Date / Time No Known Allergies Allergy Verified 05/12/24 07:39 Review of Systems ROS Statement: Those systems with pertinent positive or pertinent negative responses have been documented in the HPI. Review of Systems: CONST: Denies fever EYES: Denies blurry vision ENT: Endorses nasal congestion, sore throat C/V: Denies Chest pain RESP: Denies shortness of breath GI: Denies abdominal pain : Denies dysuria SKIN: Denies rash. MSK: Denies joint pain. NEURO: Denies headache ROS Other: All systems not noted in ROS Statement are negative. Past Medical History Past Medical History: No Reported History Additional Past Medical History / Comment(s): OB history: First was a for distress. This is her second and she has had care with me since 16 weeks. A+, abs neg, Rub Imm, RPR NR, Hep B neg, toxo neg. History of Any Multi-Drug Resistant Organisms: None Reported Past Surgical History: Section Past Anesthesia/Blood Transfusion Reactions: No Reported Reaction Past Psychological History: Anxiety Smoking Status: Former smoker Past Alcohol Use History: Rare Past Drug Use History: None Reported - Past Family History Mother Family Medical History: COPD Additional Family Medical History / Comment(s): General Exam - General Exam Comments Initial Comments: General: Appears in no acute distress. HEAD: Normal with no signs of head trauma. EYES: EOMI. ENT: Hearing grossly intact. Posterior oropharynx within normal limits. RESPIRATORY: No respiratory distress. Clear breath sounds bilaterally. No hypoxia. C/V: Regular rate and rhythm. ABD: Abdomen is nondistended. EXT: No obvious deformity. SKIN: No rashes or lesions observed on exposed skin. NEURO: Alert and oriented. Limitations: no limitations Course Vital Signs 05/12/24 05/12/24 05/12/24 07:36 07:43 10:14 Temperature 98.0 F 98 F Pulse Rate 80 81 Respiratory 16 18 16 Rate Blood Pressure 123/70 125/81 O2 Sat by Pulse 98 99 Oximetry Medical Decision Making - Medical Decision Making Was pt. sent in by a medical professional or institution (, PA, NAVAL GUNFIRE SPOTTER, urgent care, hospital, or prison...) When possible be specific @ -No Did you speak to anyone other than the patient for history (EMS, parent, family, police, friend...)? What history was obtained from this source @ -No Did you review nursing and triage notes (agree or disagree)? Why? @ -I reviewed and agree with nursing and triage notes Were old charts reviewed (outside hosp., previous admission, EMS record, old EKG, old radiological studies, urgent care reports/EKG's, prison records)? Report findings @ -No old charts were reviewed Differential Diagnosis (chest pain, altered mental status, abdominal pain women, abdominal pain men, vaginal bleeding, weakness, fever, dyspnea, syncope, headache, dizziness, GI bleed, back pain, seizure, CVA, palpatations, mental health, musculoskeletal)? @ -COVID, flu, RSV, pneumonia. This list is not all inclusive. EKG interpreted by me (3pts min.). @ -None done X-rays interpreted by me (1pt min.). @ -Chest x-ray reveals no obvious acute cardiopulmonary process. CT interpreted by me (1pt min.). @ -None done U/S interpreted by me (1pt. min.). @ -None done What testing was considered but not performed or refused? (CT, X-rays, U/S, labs)? Why? @ -None What meds were considered but not given or refused? Why? @ -None Did you discuss the management of the patient with other professionals (professionals i.e. , PA, NAVAL GUNFIRE SPOTTER, lab, RT, psych nurse, child welfare social worker, supervisor fish hatchery, teacher, chemical instrumentation officer, comp field case manager)? Give summary @ -No Was smoking cessation discussed for >3mins.? @ -No Was critical care preformed (if so, how long)? @ -No Were there social determinants of health that impacted care today? How? (Homelessness, low income, unemployed, alcoholism, drug addiction, t ransportation, low edu. Level, literacy, decrease access to med. care, assisted, rehab)? @ -No Was there de-escalation of care discussed even if they declined (Discuss DNR or withdrawal of care, Hospice)? DNR status @ -No What co-morbidities impacted this encounter? (DM, HTN, Smoking, COPD, CAD, Cancer, CVA, ARF, Chemo, Hep., AIDS, mental health diagnosis, sleep apnea, morbid obesity)? @ -None Was patient admitted / discharged? Hospital course, mention meds given and route, prescriptions, significant lab abnormalities, going to OR and other pertinent info. @ -Patient presents with upper respiratory symptoms. We will obtain viral swab, strep swab, chest x-ray. Vitals within acceptable limits. She will be given a dose of Decadron. Patient was in agreement this plan. Imaging unremarkable. Swabs negative. I update the patient. She will be discharged home on a Z-Jluis for tracheobronchitis. She was in agreement this plan. I will provide the patient with a prescription for azithromycin. I instructed the patient to follow up with their PCP in the next 1-3 days.. I explained that the patient should return to the emergency department if they experience any worsening symptoms. Strict return precautions were discussed with the patient. The patient expressed understanding of these instructions. I answered all questions that the patient had. The patient was discharged home in good condition with their prescriptions and follow up information. Undiagnosed new problem with uncertain prognosis? @ -No Drug Therapy requiring intensive monitoring for toxicity (Heparin, Nitro, Insulin, Cardizem)? @ -No Were any procedures done? @ -No Diagnosis/symptom? @ -Tracheobronchitis Acute, or Chronic, or Acute on Chronic? @ -Acute Uncomplicated (without systemic symptoms) or Complicated (systemic symptoms)? @ -Uncomplicated Side effects of treatment? @ -No Exacerbation, Progression, or Severe Exacerbation? @ -No Poses a threat to life or bodily function? How? (Chest pain, [place], [place], pneumonia, PE, COPD, DKA, ARF, appy, cholecystitis, CVA, Diverticulitis, Homicidal, Suicidal, threat to staff... and all critical care pts) @ -Unlikely - Lab Data Lab Results 05/12/24 05/12/24 Range/Units 08:47 08:47 Influenza Type A (PCR) Not Detected (Not Detectd) Influenza Type B (PCR) Not Detected (Not Detectd) RSV (PCR) Not Detected (Not Detectd) SARS-CoV-2 (PCR) Not Detected (Not Detectd) Group A Strep (PCR) NOT DETECTED (Not Detectd) Disposition Clinical Impression: Tracheobronchitis Disposition: HOME SELF-CARE Condition: Good Instructions (If sedation given, give patient instructions): Acute Bronchitis (ED) Prescriptions: Azithromycin [Zithromax] 250 mg PO DAILY 4 Days #4 tab Is patient prescribed a controlled substance at d/c from ED?: No Referrals: [facility] [NON-STAFF] - 1-2 days [facility] [NON-STAFF] - 1-2 days None,Stated [Primary Care Provider] - 1-2 days Forms: Area PCPs Time of Disposition: 10:00
[2024-05-12] MEDS: AZITHROMYCIN 500 MG TAB PO STA (10:13)
[2024-05-12 10:15] VITALS: BP 125/81; PULSE 81; RESP 16; TEMP 98
== END 2024-05-12 10:16 | disposition home or self-care (01) ==
LOC: EC 07:10
DX: J40 Bronchitis, not specified as acute or chronic (principal); Z87.891 Personal history of nicotine dependence
CPT/HCPCS: 87651; 87636; 71046; 99283; J8540

== ENCOUNTER 2024-10-18 17:12 | Emergency (ER) | payer OTHER ==
--- NOTE | 2024-10-18 18:25 | ED ---
General Adult HPI - General Chief complaint: Upper Respiratory Infection Stated complaint: Cough Congestion Time Seen by Provider: 10/18/24 17:30 Source: patient, RN notes reviewed Mode of arrival: ambulatory Limitations: no limitations - History of Present Illness Initial comments: 34-year-old female no prior medical conditions presents the emergency department for complaint of cough, congestion, body aches and fatigue. States that she has been experiencing symptoms over the past 3 days. Denies fevers, chills, abdominal pain, nausea, vomiting, difficulty breathing. States that her children have been experiencing similar symptoms as well. - Related Data Previous Rx's Medication Instructions Recorded Azithromycin [Zithromax] 250 mg PO DIRECTED 5 Days #6 tab 06/20/22 predniSONE 50 mg PO DAILY 5 Days #5 tablet 06/20/22 Amoxicillin 875 mg PO Q12HR 7 Days #14 tablet 06/24/22 Azithromycin [Zithromax] 250 mg PO DAILY 4 Days #4 tab 05/12/24 Allergies Allergy/AdvReac Type Severity Reaction Status Date / Time No Known Allergies Allergy Verified 10/18/24 17:56 Review of Systems ROS Statement: Those systems with pertinent positive or pertinent negative responses have been documented in the HPI. ROS Other: All systems not noted in ROS Statement are negative. Past Medical History Past Medical History: No Reported History Additional Past Medical History / Comment(s): OB history: First was a for distress. This is her second and she has had care with me since 16 weeks. A+, abs neg, Rub Imm, RPR NR, Hep B neg, toxo neg. History of Any Multi-Drug Resistant Organisms: None Reported Past Surgical History: Section Past Anesthesia/Blood Transfusion Reactions: No Reported Reaction Past Psychological History: Anxiety Smoking Status: Former smoker Past Alcohol Use History: Rare Past Drug Use History: None Reported - Past Family History Mother Family Medical History: COPD Additional Family Medical History / Comment(s): General Exam Limitations: no limitations General appearance: alert, in no apparent distress Eye exam: Present: normal appearance, PERRL, EOMI. Absent: scleral icterus, conjunctival injection, periorbital swelling Neck exam: Present: normal inspection. Absent: tenderness, meningismus, lymphadenopathy Respiratory exam: Present: normal lung sounds bilaterally. Absent: respiratory distress, wheezes, rales, rhonchi, stridor Cardiovascular Exam: Present: regular rate, normal rhythm, normal heart sounds. Absent: systolic murmur, diastolic murmur, rubs, gallop, clicks GI/Abdominal exam: Present: soft, normal bowel sounds. Absent: distended, tenderness, guarding, rebound, rigid Extremities exam: Present: normal inspection, full ROM, normal capillary refill. Absent: tenderness, pedal edema, joint swelling, calf tenderness Back exam: Present: normal inspection Course Vital Signs 10/18/24 17:53 Temperature 98.3 F Pulse Rate 86 Respiratory 17 Rate Blood Pressure 119/75 O2 Sat by Pulse 95 Oximetry Medical Decision Making - Medical Decision Making Was pt. sent in by a medical professional or institution (, PA, PATIENT EDUCATOR, urgent care, hospital, or shelter...) When possible be specific @ -No Did you speak to anyone other than the patient for history (EMS, parent, family, police, friend...)? What history was obtained from this source @ -No Did you review nursing and triage notes (agree or disagree)? Why? @ -I reviewed and agree with nursing and triage notes Were old charts reviewed (outside hosp., previous admission, EMS record, old EKG, old radiological studies, urgent care reports/EKG's, shelter records)? Report findings @ -No old charts were reviewed Differential Diagnosis (chest pain, altered mental status, abdominal pain women, abdominal pain men, vaginal bleeding, weakness, fever, dyspnea, syncope, headache, dizziness, GI bleed, back pain, seizure, CVA, palpatations, mental health, musculoskeletal)? @ -COVID 19, RSV, influenza, pneumonia, acute bronchitis, URI, this list is not all inclusive EKG interpreted by me (3pts min.). @ -None X-rays interpreted by me (1pt min.). @ -Chest x-ray completed with no acute cardiopulmonary process or disease CT interpreted by me (1pt min.). @ -None done U/S interpreted by me (1pt. min.). @ -None done What testing was considered but not performed or refused? (CT, X-rays, U/S, labs)? Why? @ -None What meds were considered but not given or refused? Why? @ -None Did you discuss the management of the patient with other professionals (professionals i.e. , PA, PATIENT EDUCATOR, lab, RT, psych nurse, socially responsible investment adviser, lapidarist, teacher, financial administration officer, case management manager)? Give summary @ -No Was smoking cessation discussed for >3mins.? @ -No Was critical care preformed (if so, how long)? @ -No Were there social determinants of health that impacted care today? How? (Homelessness, low income, unemployed, alcoholism, drug addiction, transp ortation, low edu. Level, literacy, decrease access to med. care, retirement, rehab)? @ -No Was there de-escalation of care discussed even if they declined (Discuss DNR or withdrawal of care, Hospice)? DNR status @ -No What co-morbidities impacted this encounter? (DM, HTN, Smoking, COPD, CAD, Cancer, CVA, ARF, Chemo, Hep., AIDS, mental health diagnosis, sleep apnea, morbid obesity)? @ -None Was patient admitted / discharged? Hospital course, mention meds given and route, prescriptions, significant lab abnormalities, going to OR and other pertinent info. @ -Discharge. 34-year-old female presenting with URI symptoms. Overall patient is well-appearing. Initial vitals are stable. Lung sounds equal and clear bilaterally. Viral testing is negative. Chest x-ray is unremarkable. Discussed with patient bedside supportive treatment for viral infection. Recommend follow-up with primary care provider. Case discussed with Dr. Vaz Undiagnosed new problem with uncertain prognosis? @ -No Drug Therapy requiring intensive monitoring for toxicity (Heparin, Nitro, Insulin, Cardizem)? @ -No Were any procedures done? @ -No Diagnosis/symptom? @ -Viral syndrome Acute, or Chronic, or Acute on Chronic? @ -Acute Uncomplicated (without systemic symptoms) or Complicated (systemic symptoms)? @ -Uncomplicated Side effects of treatment? @ -No Exacerbation, Progression, or Severe Exacerbation? @ -No Poses a threat to life or bodily function? How? (Chest pain, [place], [place], pneumonia, PE, COPD, DKA, ARF, appy, cholecystitis, CVA, Diverticulitis, Homicidal, Suicidal, threat to staff... and all critical care pts) @ -No - Lab Data Lab Results 10/18/24 Range/Units 18:28 Influenza Type A (PCR) Not Detected (Not Detectd) Influenza Type B (PCR) Not Detected (Not Detectd) RSV (PCR) Not Detected (Not Detectd) SARS-CoV-2 (PCR) Not Detected (Not Detectd) Disposition Clinical Impression: Viral infection Disposition: HOME SELF-CARE Condition: Good Instructions (If sedation given, give patient instructions): Viral Syndrome (ED) Additional Instructions: Please return to the Emergency Department if symptoms worsen or any other concerns. Is patient prescribed a controlled substance at d/c from ED?: No Referrals: Elmo Caruso MD [Primary Care Provider] - 1-2 days Time of Disposition: 19:18
--- NOTE | 2024-10-18 19:13 | XR ---
EXAMINATION TYPE: XR chest 2V DATE OF EXAM: 10/18/2024 6:40 PM COMPARISON: Chest radiographs from 05/12/2024 CLINICAL INDICATION: Female, 34 years old with history of cough, congestion; [facility] TECHNIQUE: XR chest 2V Frontal and lateral views of the chest. FINDINGS: Lungs/Pleura: There is no evidence of pleural effusion, focal consolidation, or pneumothorax. Pulmonary vascularity: Unremarkable. Heart/mediastinum: Cardiomediastinal silhouette is unremarkable. Musculoskeletal: No acute osseous pathology. Other findings: None IMPRESSION: No acute cardiopulmonary disease/process. [facility], , 10/18/2024 7:11 PM
[2024-10-18 19:24] LABS: Influenza A Not Detected (Not Detectd); Influenza B Not Detected (Not Detectd); RSV Not Detected (Not Detectd)
[2024-10-18 19:41] VITALS: BP 117/77; PULSE 79; RESP 18; TEMP 97.8
== END 2024-10-18 19:35 | disposition home or self-care (01) ==
LOC: EC 17:12
DX: B34.9 Viral infection, unspecified (principal); Z87.891 Personal history of nicotine dependence
CPT/HCPCS: 71046; 87636; 99283